=== PATIENT | male | born 1950 | race Caucasian/White ===

== ENCOUNTER 2018-01-16 05:32 | Emergency (ER) | payer MEDICARE, BC ==
[2018-01-16] MEDS ORDERED: predniSONE 20 MG Tab PO ONE (06:01)
[2018-01-16] MEDS ORDERED: Famotidine 20 MG Tab PO ONE (06:01)
--- NOTE | 2018-01-16 06:12 | EDM.PDOC ---
ED HPI GENERAL MEDICAL PROBLEM - General Chief Complaint: Allergic Reaction Stated Complaint: ALLERGIC REACTION Time Seen by Provider: 01/16/18 05:55 Source of Information: Reports: Patient, RN History Limitations: Reports: No Limitations - History of Present Illness INITIAL COMMENTS - FREE TEXT/NARRATIVE: 67 yo male here with itchy, slightly puffy hands and feet since yesterday. Had been prescribed Augmentin for a sinus infection and was on day #9 when these sx' s began. He did stop the antibiotic, but the nurse line he called told him to take Benedryl, but not how much so he was only taking 25 mg at a time and not getting relief. He denies difficulty breathing or swallowing. Onset: Gradual Onset Date: 01/15/18 Duration: Hour(s):, Getting Worse Location: Reports: Other (all hands/feet, plus a couple hives in the L prox/ lateral thigh.) Bilateral Hand Pain Score (Numeric/FACES): 5 - Related Data Allergies Allergy/AdvReac Type Severity Reaction Status Date / Time No Known Allergies Allergy Verified 01/16/18 05:49 Home Meds: Home Meds Amoxicillin/Clavulanate K [Augmentin 875-125 MG] 1 tab PO BID 01/16/18 [History] Levothyroxine 1 tab PO DAILY 01/16/18 [History] Tamsulosin [Flomax] 1 cap PO DAILY 01/16/18 [History] predniSONE [Prednisone] 10 mg PO BID #18 tablet 01/16/18 [Rx] Past Medical History HEENT History: Reports: Impaired Vision Genitourinary History: Reports: BPH Musculoskeletal History: Reports: Fracture, Other (See Below) Other Musculoskeletal History: fractured vertabrae Endocrine/Metabolic History: Reports: Hypothyroidism Social & Family History - Tobacco Use Smoking Status *Q: Never Smoker - Recreational Drug Use Recreational Drug Use: No ED ROS ALLERGIC REACTION - Review of Systems Review Of Systems: See Below Constitutional: Reports: No Symptoms HEENT: Reports: No Symptoms Respiratory: Reports: No Symptoms Cardiovascular: Reports: No Symptoms GI/Abdominal: Reports: No Symptoms : Reports: No Symptoms Musculoskeletal: Reports: No Symptoms Skin: Reports: Pruritis, Erythema, Urticaria Neurological: Reports: No Symptoms ED EXAM GENERAL NO PERIP PULSE - Physical Exam Exam: See Below General Appearance: Alert, WD/WN, No Apparent Distress Eye Exam: Bilateral Eye: Normal Inspection Ears: Normal External Exam, Normal Canal, Hearing Grossly Normal, Normal TMs Nose: Normal Inspection, Normal Mucosa, No Blood Throat/Mouth: Normal Inspection, Normal Lips, Normal Teeth, Normal Oropharynx, Normal Voice, No Airway Compromise Head: Atraumatic, Normocephalic Neck: Normal Inspection Respiratory/Chest: No Respiratory Distress, Lungs Clear, Normal Breath Sounds, No Accessory Muscle Use Cardiovascular: Regular Rate, Rhythm, No Edema Extremities: Redness (palms/soles slightly red and puffy) Neurological: Alert, Oriented, CN II-XII Intact, Normal Cognition, No Motor/ Sensory Deficits Psychiatric: Normal Affect, Normal Mood Skin Exam: Warm, Dry, Intact, Erythema, Other (hives to prox/lateral R thigh. Some redness to palms and soles of all hands/feet.) Course - Vital Signs Text/Narrative:: prednisone 20 mg po, Famotidine 40 mg po Last Recorded V/S: Last Vital Signs Temp 35.8 C 01/16/18 05:45 Pulse 66 01/16/18 05:45 Resp 16 01/16/18 05:45 BP 117/68 01/16/18 05:45 Pulse Ox 95 01/16/18 05:45 - Orders/Labs/Meds Meds: Medications Discontinued Medications Generic Name Dose Route Start Last Admin Trade Name Leobardo PRN Reason Stop Dose Admin Famotidine 40 mg 01/16/18 06:01 Pepcid PO 01/16/18 06:02 ONETIME ONE Prednisone 20 mg 01/16/18 06:01 Prednisone PO 01/16/18 06:02 ONETIME ONE Departure - Departure Time of Disposition: 06:13 Disposition: Home, Self-Care 01 Condition: Good Clinical Impression: Hives, Penicillin allergy - Discharge Information Prescriptions: predniSONE [Prednisone] 10 mg PO BID #18 tablet Referrals: Dusty Adhikari MD [Primary Care Provider] - Forms: ED Department Discharge Additional Instructions: Take Pepcid AC 40 mg every morning, next dose tomorrow. Take Prednisone as directed until gone. Stop the Augmentin and do not take any penicillins in the future. If needed take diphenhydramine 50-75 mg every 6 hrs for hives/itching- don't drive it taking diphenhydramine. Recheck if not improving or if worse.
== END 2018-01-16 06:19 | disposition home or self-care (01) ==
LOC: JP.ED 05:32
DX: L50.0 Allergic urticaria (principal); T36.0X5A Adverse effect of penicillins, initial encounter; Z79.899 Other long term (current) drug therapy
CPT/HCPCS: 99283; A9270

== ENCOUNTER 2018-01-19 22:25 | Emergency (ER) | payer MEDICARE, BC ==
--- NOTE | 2018-01-20 00:13 | EDM.PDOC ---
ED HPI GENERAL MEDICAL PROBLEM - General Chief Complaint: General Stated Complaint: ARM PAIN HAND PAIN Time Seen by Provider: 01/19/18 23:45 Source of Information: Reports: Patient History Limitations: Reports: No Limitations - History of Present Illness INITIAL COMMENTS - FREE TEXT/NARRATIVE: 67-year-old male that was treated recently for allergic reaction to Augmentin with diffuse hives, he is currently on prednisone. Today however he developed arm pain, especially with movement and when his left wrist started hurting he thought he should come in and get checked. He has no fevers or chills, no joint swelling or redness. Onset: Gradual Duration: Hour(s): (3 to 4 hours) Location: Reports: Upper Extremity, Left, Upper Extremity, Right Quality: Reports: Ache, Sharp Severity: Moderate Worsens with: Reports: Movement Associated Symptoms: Denies: Chest Pain, Cough, Fever/Chills, Nausea/Vomiting, Shortness of Breath Right Arm Pain Score (Numeric/FACES): 7 - Related Data Allergies Allergy/AdvReac Type Severity Reaction Status Date / Time amoxicillin [From Augmentin] Allergy Hives Verified 01/16/18 06:07 clavulanic acid Allergy Hives Verified 01/16/18 06:07 [From Augmentin] Penicillins Allergy Hives Verified 01/19/18 23:27 Home Meds: Home Meds Levothyroxine 1 tab PO DAILY 01/16/18 [History] Tamsulosin [Flomax] 1 cap PO DAILY 01/16/18 [History] predniSONE [Prednisone] 10 mg PO BID #18 tablet 01/16/18 [Rx] Famotidine [Pepcid] 40 mg PO DAILY 01/19/18 [History] diphenhydrAMINE [Benadryl] 75 mg PO Q6H PRN 01/19/18 [History] Past Medical History HEENT History: Reports: Impaired Vision Genitourinary History: Reports: BPH Musculoskeletal History: Reports: Fracture, Other (See Below) Other Musculoskeletal History: fractured vertabrae, scoliosis Endocrine/Metabolic History: Reports: Hypothyroidism Social & Family History - Tobacco Use Smoking Status *Q: Former Smoker Used Tobacco, but Quit: Yes Month/Year Tobacco Last Used: 1997 - Caffeine Use Caffeine Use: Reports: Coffee - Alcohol Use Days Per Week of Alcohol Use: 1 Number of Drinks Per Day: 2 Total Drinks Per Week: 2 - Recreational Drug Use Recreational Drug Use: No ED ROS GENERAL - Review of Systems Review Of Systems: See Below Constitutional: Denies: Fever, Chills HEENT: Reports: No Symptoms Respiratory: Reports: No Symptoms Cardiovascular: Reports: No Symptoms GI/Abdominal: Reports: No Symptoms Skin: Reports: Rash (improved over the last 2 days, almost gone) Neurological: Reports: No Symptoms ED EXAM, GENERAL - Physical Exam Exam: See Below Exam Limited By: No Limitations General Appearance: Alert, No Apparent Distress Throat/Mouth: Normal Inspection Head: Atraumatic Neck: Supple Respiratory/Chest: No Respiratory Distress, Lungs Clear Cardiovascular: Regular Rate, Rhythm Extremities: Other (Very sore right shoulder, forearm and wrist with palpation or movement. No erythema or bruising, no joint swelling. Left wrist also sore) Neurological: Alert, Oriented, No Motor/Sensory Deficits Psychiatric: Normal Affect, Normal Mood Skin Exam: Warm, Dry, Rash (minimal remnant of macular rash on legs, lower abdomen) Course - Vital Signs Last Recorded V/S: Last Vital Signs Temp 96.0 F 01/19/18 23:39 Pulse 79 01/19/18 23:39 Resp 12 01/19/18 23:39 BP 110/64 01/19/18 23:39 Pulse Ox 98 01/19/18 23:39 - Re-Assessments/Exams Free Text/Narrative Re-Assessment/Exam: 01/20/18 17:30 Discussed a stronger IV burst of solumedrol and toradol, patient declined. Given 10 [place] 5/325 for extra pain control and will finish course of treatment with oral steroids and antihistamines Departure - Departure Time of Disposition: 00:19 Disposition: Home, Self-Care 01 Condition: Good Clinical Impression: Allergic reaction to drug Qualifiers: Encounter type: subsequent encounter Qualified Code(s): T78.40XD - Allergy, unspecified, subsequent encounter - Discharge Information Instructions: Drug Allergy, [id number] Referrals: PCP,None [Primary Care Provider] - Forms: ED Department Discharge Care Plan Goals: Continue your current medications, it would be beneficial to add some naproxen or aspirin and take stronger pain medication as prescribed if needed. Recheck in the next 24-48 hours if worsening instead of improving.
== END 2018-01-20 00:19 | disposition home or self-care (01) ==
LOC: JP.ED 22:25
DX: M79.601 Pain in right arm (principal); T36.0X5D Adverse effect of penicillins, subsequent encounter; E03.9 Hypothyroidism, unspecified; Z88.1 Allergy status to other antibiotic agents; Z88.0 Allergy status to penicillin; Z87.891 Personal history of nicotine dependence; Z79.899 Other long term (current) drug therapy
CPT/HCPCS: 99283

== ENCOUNTER 2021-09-28 06:21 | Day surgery (SDC) | payer MEDICARE, BC ==
[2021-09-28] MEDS ORDERED: Bupivacaine 0.5% 50 ML MDV ONE (06:34)
[2021-09-28] MEDS ORDERED: Lidocaine 1% with EPINEPHrine 1:100,000 50 ML MDV ONE (06:34)
[2021-09-28] MEDS: Sodium Chloride 0.9% 1,000 ML IV SCH (06:59)
[2021-09-28] MEDS ORDERED: Propofol 200 MG/20 ML SDV ONE ×2 (07:31→08:45)
[2021-09-28] MEDS ORDERED: fentaNYL 100 MCG/2 ML SDV ONE (07:31)
[2021-09-28] MEDS ORDERED: Midazolam 1 MG/ML 2 ML SDV ONE (07:31)
[2021-09-28] MEDS: metroNIDAZOLE/Normal Saline 500 MG in Premix Bag 1 BAG IV ONE (07:43)
[2021-09-28] MEDS: ceFAZolin 2 GM in Premix Bag 1 BAG IV ONE (07:43)
[2021-09-28] MEDS: Ropivacaine 38 ML, dexAMETHasone 8 MG, EPINEPHrine 0.4 MG, Sodium Chloride 0.9% 39.6 ML NERVRT SCH ×4 (08:52)
[2021-09-28] MEDS: Acetaminophen/HYDROcodone 325-5 MG Tab PO PRN (10:26)
--- NOTE | 2021-09-29 09:11 | OR ---
DATE OF PROCEDURE: 09/28/2021 SURGEON: Victor Hugo Harris MD PROCEDURE: Open inguinal hernia repair, right, incarcerated, non strangulated, repair with mesh. COMPLICATIONS: None. BLIND TEACHER: None. ANESTHESIA: MAC. PREOPERATIVE DIAGNOSIS: Incarcerated non strangulated hernia. POSTOPERATIVE DIAGNOSIS: Incarcerated non strangulated hernia. RISKS: Risks, benefits, alternatives, and limitations including, but not limited to infection, bleeding, injury to abdominal structures, chronic wounds, chronic pain, failure rates, seroma, hematoma, injury to testicle resulting in infertility or loss were all explained to the patient and he wished to proceed. PROCEDURE IN DETAIL: The patient was placed in supine position. A transverse incision was made in the right groin to lateral and superior sides superior to the pubic symphysis. This was then carried down with blunt dissection to the external oblique aponeurosis. This was opened sharply with a 15 blade. Mobilization of the external oblique aponeurosis was commenced. Cord structures were identified and surrounded with a [place] drain. The patient was noted to have incarcerated non strangulated hernia. This was then reduced within the defect which was an indirect inguinal hernia. An extra-large plug and patch system was then used to sew this into place. This was sewn intact approximately 5 mm to 1 cm. The external oblique aponeurosis was reapproximated over a 3-0 Vicryl. Subcutaneous tissue was closed with 3-0 Vicryl and skin was closed with 4-0 Vicryl. The patient tolerated the procedure well. Victor Hugo Harris MD /[id number]
--- NOTE | 2021-09-29 09:11 | OR ---
DATE OF PROCEDURE: 09/28/2021 SURGEON: Victor Hugo Harris MD PROCEDURES: 1. Transversus abdominis plane blocks bilaterally. 2. Rectus sheath blocks bilaterally. COMPLICATIONS: None. LABORATORY PHLEBOTOMIST: None. RISKS: Risks, benefits, alternatives, and limitations including, but not limited to infection, bleeding, perforation, false positives and false negatives were all explained to the patient and he wished to proceed. PROCEDURE IN DETAIL: The patient was placed in supine position. The right transversus plane was identified first. This was accessed using a 13 megahertz ultrasound probe. 20% of the solution was injected. This was then repeated on the other side also under direct visualization. Bilateral rectus sheaths were identified. The posterior rectus sheath was identified and injected 20% of the solution respectively. All 4 procedures were performed in a same manner, same fashion, same technique in the same sequence using the same equipment. At no time was the needle blindly advanced. The ultrasound probe was used throughout the entire procedure. The patient tolerated the procedure well. Victor Hugo Harris MD /[id number]
== END 2021-09-28 11:42 | disposition home or self-care (01) ==
LOC: JP.SDS 06:21
PROVIDERS: ATTEND Surgery
DX: K40.30 Unilateral inguinal hernia, with obstruction, without gangrene, not specified as recurrent (principal); K21.9 Gastro-esophageal reflux disease without esophagitis; E03.9 Hypothyroidism, unspecified; Z88.0 Allergy status to penicillin; Z88.8 Allergy status to other drugs, medicaments and biological substances
CPT/HCPCS: 49507; A9270; C1713; C1781; J0171; J0690; J1100; J2250; J2704; J2795; J3010; J3490; J7030

== ENCOUNTER 2023-12-13 14:23 | Emergency (ER) | payer OTHER, MEDICARE, BC | END 2023-12-13 16:00 | disposition home or self-care (01) | LOC: JP.ED 14:23 | DX: S73.102A Unspecified sprain of left hip, initial encounter (principal); E03.9 Hypothyroidism, unspecified; Z79.899 Other long term (current) drug therapy; Z88.0 Allergy status to penicillin; Z88.1 Allergy status to other antibiotic agents | CPT/HCPCS: 73502-26-LT; 73502-LT; 99283 ==